=== PATIENT | male | born 2000 | race Caucasian/White ===

== ENCOUNTER 2019-05-11 12:03 | Emergency (ER) | payer OTHER ==
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
[2019-05-11 13:03] LABS: ABSOLUTE NEUTROPHIL COUNT 6.54; BASO % 0.1 % (0-6); EOS % 0.3 % (0-6); GRAN % 74.6 % (47-80); HEMATOCRIT 46.4 % (42.0-52.0); HEMOGLOBIN 16.1 gm/dl (14.0-18.0); LYMPH % 20.1 % (16-45); MEAN CELL VOLUME 87.5 fl (81-97); MEAN CORPUSCULAR HEMOGLOBIN 30.4 pg (27-33); MEAN CORPUSCULAR HGB CONC 34.7 g/dl (32-36); MEAN PLATELET VOLUME 10.8 fl (7.4-10.4); MONO % 4.9 % (0-9); PLATELET COUNT 243 K/uL (130-400); RED CELL DISTRIBUTION WIDTH 12.4 % (11.5-14.5); WHITE BLOOD COUNT W/O DIFF 8.8 K/uL (4.2-12.2)
[2019-05-11 13:10] LABS: AMPHETAMINE SCREEN URINE NOT DETECTED; BARBITURATE SCREEN URINE NOT DETECTED; BENZODIAZEPINE SCREEN URINE NOT DETECTED; BLOOD UREA NITROGEN 13 mg/dL (6-20); COCAINE SCREEN URINE NOT DETECTED; CREATININE 0.7 mg/dL (0.7-1.2); EST GLOMERULAR FILTRATION RATE > 60 mL/min; METHADONE SCREEN URINE NOT DETECTED; METHAMPHETAMINE SCREEN NOT DETECTED; OPIATE SCREEN URINE NOT DETECTED; OXYCODONE SCREEN URINE NOT DETECTED; PHENCYCLIDINE SCREEN URINE NOT DETECTED; PROPOXYPHENE SCREEN URINE NOT DETECTED; THC SCREEN URINE NOT DETECTED; TRICYCLIC ANTIDEPRESSANT SCRN NOT DETECTED
[2019-05-11 13:11] LABS: URINE APPEARANCE SL CLOUDY; URINE BILIRUBIN NEGATIVE (NEGATIVE); URINE COLOR DARK YELLOW; URINE GLUCOSE (UA) NEGATIVE (NEGATIVE); URINE KETONE 15 mg/dL (NEGATIVE)
[2019-05-11 13:12] LABS: GLUCOSE,RANDOM 102 mg/dL (74-109); URINE BLOOD NEGATIVE (NEGATIVE); URINE LEUKOCYTE ESTERASE NEGATIVE (NEGATIVE); URINE NITRITE NEGATIVE (NEGATIVE); URINE PROTEIN TRACE (NEGATIVE); URINE UROBILINOGEN 0.2 E.U./dL (0.20 - 1.00)
[2019-05-11 13:17] LABS: ACETAMINOPHEN < 5.0 ug/mL (10.0-30.0); ALCOHOL < 0.010 g/dL (0-0.010); SALICYLATE < 0.3 mg/dL (2.8-20)
[2019-05-11 13:26] LABS: THYROID STIMULATING HORMONE 0.58 uIU/mL (0.270-4.20)
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
== END 2019-05-11 15:52 ==
LOC: ER 12:03
DX: R45.851 Suicidal ideations (principal); F32.9 Major depressive disorder, single episode, unspecified; S20.212A Contusion of left front wall of thorax, initial encounter; Y04.0XXA Assault by unarmed brawl or fight, initial encounter
CPT/HCPCS: 71046; 80048; 80305; 80320; 80329; 81003; 84443; 85025; 99285